=== PATIENT | female | born 1965 | race Caucasian/White ===

== ENCOUNTER 2019-07-24 18:38 | Inpatient (IN) | payer MEDICARE ==
[~2019-07-24] VITALS: Ht 177.8 cm; Wt 93.1 kg
[~2019-07-24 18:38] MED LIST: ETAN50IN5 SC; METH2.5T3 PO; PERCOT PO; SERT100T PO
[2019-07-24] MEDS ORDERED: methylPREDNISolone SOD SUCC 125 MG/2 ML VL IV ONE (19:00)
[2019-07-24] MEDS ORDERED: diphenhdrAMINE HCL 50 MG/1 ML VL IV ONE (19:00)
[2019-07-24 19:30] LABS: Basophils # (auto) 0 uL; Eosinophils # (auto) 0.6 uL; Eosinophils % (auto) 13.3 % (0.0-7.0); Hemoglobin 9.5 g/dL (12.2-16.2); Monocytes # (auto) 0.1 uL; Neutrophils # (auto) 3.1 uL; White Blood Cell 4.8 10^3/uL (4.4-10.8)
[2019-07-24 19:32] LABS: Basophils % (auto) 0.3 % (0.0-2.0); Hematocrit 29.3 % (36.0-46.0); Lymphocytes % (auto) 20.4 % (10.0-50.0); Mean Corpuscular Hemoglobin 26.9 pg (28.0-32.0); Mean Corpuscular Hgb Conc. 32.4 g/dL (32.0-36.0); Mean Corpuscular Volume 83.1 fL (80.0-100.0); Monocytes % (auto) 1.1 % (0.0-12.0); Neutrophils % (auto) 64.9 % (37.0-80.0); Nucleated Red Blood Cells % 0.1 %; Platelet Count (auto) 150 10^3/uL (140-450); Red Blood Cells 3.52 10^6/uL (4.0-5.20)
[2019-07-24 19:38] LABS: Red Cell Distribution Width 21.6 % (11.8-14.3)
[2019-07-24 19:45] LABS: Albumin 2.9 g/dL (3.4-5.0); Anion Gap 6 (5-15); Blood Urea Nitrogen 28 mg/dL (7-18); Calcium 8.8 mg/dL (8.5-10.1); Carbon Dioxide 21 mmol/L (21-32); Chloride 110 mmol/L (98-107); Glucose 97 mg/dL (74-106); Sodium 137 mmol/L (136-145)
[2019-07-24 19:51] LABS: Alanine Aminotransferase 13 U/L (13-56); Alkaline Phosphatase 79 U/L (45-117); Aspartate Aminotransferase 20 U/L (15-37); BUN/Creatinine Ratio 20.6; Bilirubin, Total 0.7 mg/dL (0.2-1.0); GFR African American 52 mL/min; GFR Non-African American 43 mL/min; Total Protein 8.2 g/dL (6.4-8.2)
[2019-07-24 22:16] LABS: Urine Bacteria FEW /hpf (None Seen); Urine Blood 2+ /uL (Negative); Urine Mucus FEW (None Seen); Urine Specific Gravity 1.018 (1.001-1.035); Urine WBC 295 /hpf (0 - 5)
[2019-07-24] MEDS ORDERED: ACETAMINOPHEN 650 mg PER 20 mL UD PO PRN (22:30)
[2019-07-24] MEDS ORDERED: MORPHINE SULFATE 4 MG/ML SYR/VIAL IV ONE (22:30)
[2019-07-24] MEDS ORDERED: ONDANSETRON HCL 4 MG/2 ML VIAL IV PRN (22:30)
[2019-07-24 23:00] VITALS: BP 99/53
[2019-07-24] MEDS ORDERED: cefTRIAXone 1GM/50ML D5W 50 ML IV ONE (23:00)
[2019-07-24] MEDS: SODIUM CHLORIDE 0.9% 1,000 ML IV SCH (23:00)
[2019-07-24] MEDS: diphenhdrAMINE HCL 50 MG/1 ML VL IV PRN (23:37)
[2019-07-25] VITALS (10 sets, daily range): BP systolic 92–138; BP diastolic 53–77
[2019-07-25] MEDS ORDERED: [UNRECOGNIZED DRUG - CODE] PO (00:21)
[2019-07-25] MEDS ORDERED: TEMA30CA5 PO (00:21)
[2019-07-25] MEDS ORDERED: TRAZ100T2 PO (00:21)
[2019-07-25] MEDS ORDERED: PERCOT PO (00:21)
[2019-07-25] MEDS ORDERED: GABA300C10 PO (00:21)
[2019-07-25] MEDS: MORPHINE SULF INJ 2 MG/ML SYRINGE 1ML IV PRN ×4 (04:06→18:33)
[2019-07-25 06:29] LABS: BUN/Creatinine Ratio 20.3; Calcium 8.6 mg/dL (8.5-10.1); Potassium 4.3 mmol/L (3.5-5.1)
[2019-07-25] MEDS: NYSTATIN (MOUTH-THROAT) 500,000 UNITS/5 ML SUSP MT SCH ×4 (06:30→22:11)
[2019-07-25] MEDS: methylPREDNISolone SOD SUCC 40 MG/ML VL IV SCH ×3 (06:30→22:11)
[2019-07-25 07:12] LABS: Hematocrit 24.4 % (36.0-46.0); Hemoglobin 8.2 g/dL (12.2-16.2); Mean Corpuscular Hemoglobin 27.6 pg (28.0-32.0); Mean Corpuscular Hgb Conc. 33.5 g/dL (32.0-36.0); Mean Corpuscular Volume 82.6 fL (80.0-100.0); Platelet Count (auto) 109 10^3/uL (140-450); Red Blood Cells 2.95 10^6/uL (4.0-5.20); White Blood Cell 3.6 10^3/uL (4.4-10.8)
[2019-07-25 07:14] LABS: Red Cell Distribution Width 21.5 % (11.8-14.3)
[2019-07-25 07:15] LABS: Band Neutrophils % (manual) 0; Basophils % (manual) 0 (0.0-2.0); Blast Cells 0; Metamyelocytes % 0; Monocytes % (manual) 0 (0-12); Myelocytes % 0; Promyelocytes % 0; Reactive Lymphocytes 0
--- NOTE | 2019-07-25 07:30 | NUR ---
Opening Shift Note Assumed care of patient, awake and alert. No S/S of distress/SOB or pain. Bed is in lowest position with 2x side rails up for safety. Instructed on POC and to call for assist PRN, will continue to monitor for changes Q1hr and PRN.
[2019-07-25 07:38] LABS: Eosinophils % (manual) 15 (0-7); Lymphocytes % (manual) 30 (10.0-50.0)
[2019-07-25] MEDS ORDERED: PNEUMOCOCCAL VACC POLYS 25 MCG/0.5 ML VIAL IM ONE (09:00)
[2019-07-25] MEDS ORDERED: INFLUENZA QUAD 2019-2020 0.5ml SYRG IM SCH (09:00)
--- NOTE | 2019-07-25 09:17 | NUR ---
MOUTH SORES Unable to take photos of sores in patients mouth due to patient not being able to open mouth wide enough. Patient stated it is too painful.
[2019-07-25 09:59] LABS: Alcohol, Urine < 3.0 mg/dL (0-5); Amphetamine Screen, Urine NEGATIVE (NEGATIVE); Barbiturate Scree,Urine NEGATIVE (NEGATIVE); Benzodiazephine Screen, Urine POSITIVE (NEGATIVE); Cannabinoid Screen, Urine NEGATIVE (NEGATIVE); Cocaine Screen, Urine NEGATIVE (NEGATIVE); Opiate Scree,Urine POSITIVE (NEGATIVE); Phencyclidine Screen, Urine NEGATIVE (NEGATIVE)
--- NOTE | 2019-07-25 10:00 | NUR ---
WOUND Wound found to sacrum, patient reports that it was due to a fall at home previous to admission. Wound care photos taken and wound consult order placed. Optifoam placed to sacral area. Patient tolerated well.
[2019-07-25] MEDS: LIDOCAINE VISCOUS 2% 15ML UD MT PRN ×2 (11:43→20:23)
[2019-07-25 13:40] LABS: INR 1.01 (0.9-1.15)
[2019-07-25 13:41] LABS: % Iron Saturation 24.9 % (15-50)
--- NOTE | 2019-07-25 14:30 | NUR ---
IV removal IV DC'd from Left fore arm with sterile technique, 20g catheter fully intact. Pressure dressing applied to site. Patient tolerated well.
--- NOTE | 2019-07-25 14:40 | NUR ---
IV insertion IV access obtained, via clean sterile technique by inserting a 22 gauge catheter at the right hand after 1 attempt(s). IV secured properly. No trauma to site. Patient tolerated well.
[2019-07-25] MEDS: SODIUM CHLORIDE 0.9% 1,000 ML IV SCH (15:28)
--- NOTE | 2019-07-25 19:00 | NUR ---
CLOSING NOTE Patient is awake and alert. No S/S of distress/SOB or pain. Bed locked in the lowest position. Bed rails up x2. Call light in reach. Care endorsed to night nurse.
[2019-07-25] MEDS: LORazepam 2MG/ML-1ML VIAL IV PRN (20:23)
[2019-07-25] MEDS ORDERED: cefTRIAXone 1GM/50ML D5W 50 ML IV SCH (21:00)
[2019-07-26 02:00] VITALS: BP 104/61
[2019-07-26] MEDS: MORPHINE SULF INJ 2 MG/ML SYRINGE 1ML IV PRN ×4 (02:02→18:31)
[2019-07-26 05:33] VITALS: BP 102/67
[2019-07-26] MEDS: methylPREDNISolone SOD SUCC 40 MG/ML VL IV SCH ×3 (06:25→22:24)
[2019-07-26] MEDS: NYSTATIN (MOUTH-THROAT) 500,000 UNITS/5 ML SUSP MT SCH ×4 (06:25→22:24)
--- NOTE | 2019-07-26 07:30 | NUR ---
Opening Shift Note Assumed care of patient, awake and alert. No S/S of distress/SOB. PT rated pain at a 5/10. The pt aware that she is not due for pain medications at this time. Bed in lowest and locked position with side rails up x2 and call light with in reach. Instructed on POC and to call for assist PRN, will continue to monitor for changes Q1hr and PRN.
[2019-07-26] MEDS: LORazepam 2MG/ML-1ML VIAL IV PRN ×2 (08:06→20:40)
[2019-07-26 09:00] VITALS: BP 122/73
[2019-07-26 09:15] LABS: Basophils # (auto) 0 uL; Eosinophils # (auto) 0 uL; Hematocrit 27.2 % (36.0-46.0); Lymphocytes # (auto) 0.3 uL; Lymphocytes % (auto) 9.1 % (10.0-50.0); Mean Corpuscular Hemoglobin 27.1 pg (28.0-32.0); Monocytes # (auto) 0 uL; Monocytes % (auto) 0.2 % (0.0-12.0); Neutrophils # (auto) 2.7 uL; Neutrophils % (auto) 90.7 % (37.0-80.0); Nucleated Red Blood Cells % 0.1 %; Platelet Count (auto) 114 10^3/uL (140-450); Red Blood Cells 3.32 10^6/uL (4.0-5.20); Red Cell Distribution Width 20.8 % (11.8-14.3)
[2019-07-26 09:33] LABS: Albumin 2.5 g/dL (3.4-5.0); Calcium 8.6 mg/dL (8.5-10.1); Potassium 4.1 mmol/L (3.5-5.1)
[2019-07-26 09:36] LABS: BUN/Creatinine Ratio 23.8; Bilirubin, Total 0.3 mg/dL (0.2-1.0); Total Protein 7.3 g/dL (6.4-8.2)
--- NOTE | 2019-07-26 11:45 | NUR ---
URINE SENT TO LAB.
[2019-07-26] MEDS: SODIUM CHLORIDE 0.9% 1,000 ML IV SCH (11:47)
--- NOTE | 2019-07-26 11:59 | NUR ---
Nutrition Assessment Notes please see attached link for complete assessment Est. Needs ABW [id number] kcal (25-30 kcal/kgBW), 61-73 gms pro (1.0-1.2 gms/kgBW). Will continue to monitor pertinent labs and reassess nutrient need prn Addendum: 07/26/19 at [address] Amended: Links added.
--- NOTE | 2019-07-26 12:00 | NUR ---
WOUND CARE NOTE: IN TO SEE PATIENT AT THIS TIME PER WOUND CARE CONSULT REQUEST. PATIENT NOTED UPON ADMIT TO HAVE WOUNDS TO SACRUM. WOUND PHOTOS TAKEN AT THAT TIME BY BEDSIDE NURSE FOR REFERENCE. PATIENT ADMITTED TO [facility] WITH DIAGNOSIS OF ALLERGIC REACTION. CURRENT CATARINO SCORE IS 17. PATIENT CAN SELF TURN/REPOSITION SELF. PATIENT ADMITS TO WEARING DIAPERS AT HOME. SHE IS NOTED TO HAVE MASD WITH MACERATED SKIN/SKIN EROSION. THERE ARE THREE OPEN ULCERS NOTED. WOUND AT UPPER MEDIAL SACRUM IS FULL THICKNESS, WOUNDS TO RIGHT AND LEFT LOWER SACRUM ARE PARTIAL THICKNESS. APPLIED THERAHONEY, OPTIFOAM GENTLE SACRAL DRESSING. PATIENT EDUCATED ON INCONTINENCE AND THE USAGE OF DIAPERS. PATIENT VERBALIZED UNDERSTANDING. PATIENT ALSO HAS MULTIPLE MUCOSAL ULCERATIONS WITHIN MOUTH. NO OTHER WOUNDS NOTED AT THIS TIME. SKIN/WOUND CARE PLAN IMPLEMENTED. PATIENT WOULD BENEFIT FROM: DAILY/PRN DRESSING CHANGES TO SACRAL WOUNDS WITH THERAHONEY, OPTIFOAM GENTLE DRESSING, BID/PRN APPLICATION WITH MOISTURE BARRIER CREAM TO LOWER BUTTOCKS/PERINEUM, FREQUENT PERICARE GIVEN NEEDED, DIETARY CONSULT, CONTINUED MONITORING BY WOUND CARE TEAM. Addendum: 07/26/19 at 1607 by Nereyda Le RN Amended: Links added.
[2019-07-26 12:31] LABS: Urine Bacteria NONE SEEN /hpf (None Seen); Urine Blood 3+ /uL (Negative); Urine Specific Gravity 1.017 (1.001-1.035); Urine WBC 40 /hpf (0 - 5)
[2019-07-26 13:00] VITALS: BP 97/59
[2019-07-26 16:51] VITALS: BP 101/70
--- NOTE | 2019-07-26 19:30 | NUR ---
ENDORSED CARE TO DIRECTOR DIGITAL STRATEGY RNEMMA.
[2019-07-26] MEDS: LIDOCAINE VISCOUS 2% 15ML UD MT PRN (20:40)
[2019-07-26 22:00] VITALS: BP 103/70
[2019-07-27] MEDS: MORPHINE SULF INJ 2 MG/ML SYRINGE 1ML IV PRN ×4 (02:53→16:29)
[2019-07-27 05:00] VITALS: BP 109/70
[2019-07-27] MEDS: LORazepam 2MG/ML-1ML VIAL IV PRN ×2 (05:54→20:22)
[2019-07-27] MEDS: NYSTATIN (MOUTH-THROAT) 500,000 UNITS/5 ML SUSP MT SCH ×4 (05:54→21:42)
[2019-07-27] MEDS: methylPREDNISolone SOD SUCC 40 MG/ML VL IV SCH (05:56)
[2019-07-27 07:07] LABS: Hemoglobin 7.9 g/dL (12.2-16.2)
[2019-07-27 07:10] LABS: Hematocrit 24.2 % (36.0-46.0); Mean Corpuscular Hgb Conc. 32.9 g/dL (32.0-36.0); Mean Corpuscular Volume 82.2 fL (80.0-100.0); Platelet Count (auto) 85 10^3/uL (140-450); Red Blood Cells 2.94 10^6/uL (4.0-5.20); Red Cell Distribution Width 21.3 % (11.8-14.3)
[2019-07-27 07:12] LABS: White Blood Cell 1.8 10^3/uL (4.4-10.8)
[2019-07-27 07:13] LABS: Basophils % (manual) 0 (0.0-2.0); Blast Cells 0; Eosinophils % (manual) 0 (0-7); Metamyelocytes % 0; Monocytes % (manual) 0 (0-12); Myelocytes % 0; Promyelocytes % 0; Reactive Lymphocytes 0
[2019-07-27 07:20] LABS: Potassium 4.3 mmol/L (3.5-5.1)
[2019-07-27 07:31] LABS: BUN/Creatinine Ratio 32.4; Calcium 8.6 mg/dL (8.5-10.1)
--- NOTE | 2019-07-27 08:00 | NUR ---
Opening Shift Note Assumed care of patient, awake and alert, oriented x 4 and verbally responsive. Respiratory even and unlabored. No S/S of distress/SOB or pain. Skin is warm and dry to touch. Instructed on POC and to call for assist PRN, will continue to monitor for changes Q1hr and PRN.
[2019-07-27 08:22] LABS: Band Neutrophils % (manual) 1; Lymphocytes % (manual) 24 (10.0-50.0)
[2019-07-27 09:00] VITALS: BP 105/54
[2019-07-27 13:00] VITALS: BP 103/70
[2019-07-27] MEDS: FILGRASTIM (TBO) 300 MCG/0.5 ML SYRG SC SCH (15:46)
[2019-07-27 17:00] VITALS: BP 122/74
--- NOTE | 2019-07-27 19:40 | NUR ---
Opening Shift Note Assumed care of patient, awake and alert. No S/S of distress/SOB or pain. Instructed on POC and to call for assist PRN. Bed in lowest locked position, call light within reach, side rails up x2, fall precautions in place. Will continue to monitor for changes Q1hr and PRN.
[2019-07-27] MEDS: DexAMETHasone 0.5MG/5ML ORAL ELIX PO SCH (21:42)
[2019-07-27 22:00] VITALS: BP 135/76
[2019-07-28] MEDS: MORPHINE SULF INJ 2 MG/ML SYRINGE 1ML IV PRN ×4 (04:54→20:32)
[2019-07-28 05:00] VITALS: BP 110/60
[2019-07-28 06:41] LABS: Hemoglobin 8.1 g/dL (12.2-16.2); Platelet Count (auto) 57 10^3/uL (140-450); Red Blood Cells 2.95 10^6/uL (4.0-5.20); White Blood Cell 5.4 10^3/uL (4.4-10.8)
[2019-07-28 06:44] LABS: Hematocrit 24.1 % (36.0-46.0); Mean Corpuscular Hemoglobin 27.4 pg (28.0-32.0); Mean Corpuscular Hgb Conc. 33.6 g/dL (32.0-36.0); Mean Corpuscular Volume 81.6 fL (80.0-100.0)
[2019-07-28] MEDS: NYSTATIN (MOUTH-THROAT) 500,000 UNITS/5 ML SUSP MT SCH ×4 (06:45→21:41)
[2019-07-28 06:46] LABS: Red Cell Distribution Width 21.6 % (11.8-14.3)
[2019-07-28] MEDS: DexAMETHasone 0.5MG/5ML ORAL ELIX PO SCH ×3 (06:46→21:41)
[2019-07-28 06:47] LABS: Basophils % (manual) 0 (0.0-2.0); Blast Cells 0; Eosinophils % (manual) 0 (0-7); Metamyelocytes % 0; Myelocytes % 0; Promyelocytes % 0; Reactive Lymphocytes 0
[2019-07-28 07:01] LABS: BUN/Creatinine Ratio 28.7; Calcium 8.5 mg/dL (8.5-10.1); Potassium 3.8 mmol/L (3.5-5.1)
--- NOTE | 2019-07-28 07:45 | NUR ---
Opening Shift Note Assumed care of patient, awake, alert and oriented. No S/S of distress/SOB or pain. Instructed on POC and to call for assist PRN. Bed in lowest locked position, call light within reach, side rails up x2. Will continue to monitor for changes Q1hr and PRN.
[2019-07-28 08:50] LABS: Band Neutrophils % (manual) 4; Lymphocytes % (manual) 28 (10.0-50.0); Monocytes % (manual) 2 (0-12)
[2019-07-28 09:00] VITALS: BP 103/59
[2019-07-28] MEDS: FILGRASTIM (TBO) 300 MCG/0.5 ML SYRG SC SCH (09:46)
[2019-07-28] MEDS: LORazepam 2MG/ML-1ML VIAL IV PRN ×2 (12:57→18:48)
[2019-07-28 13:00] VITALS: BP 94/63
[2019-07-28] MEDS ORDERED: Ensure Enlive Strawberry 8oz Bottle PO ONE (13:00)
[2019-07-28 16:49] VITALS: BP 94/62
[2019-07-28] MEDS: Ensure Enlive Strawberry 8oz Bottle PO SCH (18:23)
[2019-07-28 21:41] VITALS: BP 93/67
[2019-07-29] MEDS: MORPHINE SULF INJ 2 MG/ML SYRINGE 1ML IV PRN ×5 (02:12→22:07)
[2019-07-29 04:59] VITALS: BP 108/62
[2019-07-29 05:12] LABS: Basophils # (auto) 0 uL; Eosinophils # (auto) 0 uL; Eosinophils % (auto) 0.4 % (0.0-7.0); Hemoglobin 8.7 g/dL (12.2-16.2); Monocytes # (auto) 0.3 uL
[2019-07-29 05:15] LABS: Basophils % (auto) 0.1 % (0.0-2.0); Hematocrit 25.7 % (36.0-46.0); Lymphocytes # (auto) 1.9 uL; Mean Corpuscular Volume 82.5 fL (80.0-100.0); Monocytes % (auto) 2.6 % (0.0-12.0); Neutrophils # (auto) 8.6 uL; Neutrophils % (auto) 78.9 % (37.0-80.0); Platelet Count (auto) 52 10^3/uL (140-450); Red Blood Cells 3.11 10^6/uL (4.0-5.20); Red Cell Distribution Width 21.8 % (11.8-14.3); White Blood Cell 10.8 10^3/uL (4.4-10.8)
[2019-07-29 05:49] LABS: BUN/Creatinine Ratio 24.5; Calcium 8.1 mg/dL (8.5-10.1); Potassium 3.7 mmol/L (3.5-5.1)
[2019-07-29] MEDS: DexAMETHasone 0.5MG/5ML ORAL ELIX PO SCH ×3 (06:19→22:06)
[2019-07-29] MEDS: NYSTATIN (MOUTH-THROAT) 500,000 UNITS/5 ML SUSP MT SCH ×4 (06:19→22:06)
[2019-07-29 09:00] VITALS: BP 101/64
[2019-07-29] MEDS: Ensure Enlive Strawberry 8oz Bottle PO SCH ×2 (09:57→17:48)
[2019-07-29] MEDS: LORazepam 2MG/ML-1ML VIAL IV PRN ×2 (10:45→16:43)
--- NOTE | 2019-07-29 10:53 | NUR ---
WOUND CARE DRESSING CHANGED per wound care nurse recommendations
--- NOTE | 2019-07-29 11:33 | NUR ---
Nutrition Follow-up Notes Wt.: 62.0 kg Pt was with WC RN by bedside when rounded this am. per records pt with improving mucositis pt is currently on full liq diet with ensure Enlive TID with inadequate PO of < 50% x 6 per RN doc Est. Needs ABW [id number] kcal (25-30 kcal/kgBW), 61-73 gms pro (1.0-1.2 gms/kgBW). Will continue to monitor pertinent labs and reassess nutrient need prn Labs: BUN 26 H, CREAT 1.06 H, ALB 2.5 L, CA 8.1 L. Skin: Lance scale 19, low risk skin intact per demonstrator knitting. GI: Pt has no BM reported per demonstrator knitting. PES: Altered nutrition related lab values r/t current/chronic medical condition aeb elev RFT mod hypoalb Will continue to monitor PO intake, skin status, pertinent labs and weight trend. F/u in 3-5 days. Rec.: 1.) advance diet as medically feasible. 2) continue current plan of care
[2019-07-29 13:00] VITALS: BP 97/50
--- NOTE | 2019-07-29 15:05 | NUR ---
MD CALL DR Keya KELLOGG CALLED RE: RHEUMATOLOGY CONSULTS FOR Beatriz KELLOGG. Wandy KELLOGG INFORMED PRIMARY RN THAT Eli KELLOGG IS OUT OF OFFICE UNTIL WEDNESDAY
[2019-07-29 17:00] VITALS: BP 92/61
--- NOTE | 2019-07-29 19:55 | NUR ---
open note assumed care of pt. upon entering room pt awake, alert and oriented x4. pt on room air no distress noted or expressed. pt updated on plan of care, no questions at this time. pt bed locked, low and 2x rails up. pt encouraged to call as needed. call light in reach. this nurse encouraged pt to call for assistance to bedside commode, to which pt agreed. call light in reach, will round q1hr and prn.
[2019-07-29] MEDS: diphenhdrAMINE HCL 50 MG/1 ML VL IV PRN (20:46)
[2019-07-29 21:57] VITALS: BP 113/64
[2019-07-30 05:00] VITALS: BP 95/56
[2019-07-30] MEDS: DexAMETHasone 0.5MG/5ML ORAL ELIX PO SCH ×3 (05:42→21:57)
[2019-07-30] MEDS: NYSTATIN (MOUTH-THROAT) 500,000 UNITS/5 ML SUSP MT SCH ×4 (05:42→21:57)
[2019-07-30] MEDS: MORPHINE SULF INJ 2 MG/ML SYRINGE 1ML IV PRN ×4 (05:43→22:24)
[2019-07-30 06:31] LABS: Basophils # (auto) 0 uL; Basophils % (auto) 0.1 % (0.0-2.0); Eosinophils # (auto) 0.2 uL; Monocytes # (auto) 0.5 uL; Platelet Count (auto) 48 10^3/uL (140-450); Red Blood Cells 3.22 10^6/uL (4.0-5.20)
[2019-07-30 06:34] LABS: Eosinophils % (auto) 2.4 % (0.0-7.0); Hematocrit 26.7 % (36.0-46.0); Lymphocytes # (auto) 2.4 uL; Mean Corpuscular Hemoglobin 27.8 pg (28.0-32.0); Mean Corpuscular Hgb Conc. 33.5 g/dL (32.0-36.0); Monocytes % (auto) 5.3 % (0.0-12.0); Neutrophils # (auto) 6.9 uL; Neutrophils % (auto) 68.2 % (37.0-80.0); White Blood Cell 10.1 10^3/uL (4.4-10.8)
[2019-07-30 06:35] LABS: Red Cell Distribution Width 21.9 % (11.8-14.3)
[2019-07-30 06:53] LABS: BUN/Creatinine Ratio 19.6; Calcium 8.1 mg/dL (8.5-10.1); Potassium 3.6 mmol/L (3.5-5.1)
[2019-07-30 09:00] VITALS: BP 93/58
[2019-07-30] MEDS: Ensure Enlive Strawberry 8oz Bottle PO SCH ×2 (09:15→17:46)
[2019-07-30] MEDS: LORazepam 2MG/ML-1ML VIAL IV PRN (09:45)
--- NOTE | 2019-07-30 12:05 | NUR ---
MD ROUNDS DR DENT AT BEDSIDE DISCUSSING POC WITH PATIENT. ALL QUESTIONS/CONCERNS ANSWERED. WILL CONTINUE TO MONITOR
[2019-07-30 13:00] VITALS: BP 88/49
--- NOTE | 2019-07-30 13:58 | NUR ---
WOUND CARE DRESSING CHANGED per wound care nurse recommendations
[2019-07-30] MEDS: diphenhdrAMINE HCL 50 MG/1 ML VL IV PRN (16:23)
[2019-07-30 16:59] VITALS: BP 101/68
--- NOTE | 2019-07-30 19:30 | NUR ---
Opening Shift Assumed care of patient, awake and alert. No S/S of distress/SOB or pain. Insructed on POC and to callfor assist PRN, will continue to monitor for changes Q1hr and PRN. Fall and safety precautions in place. Call light within reach.
[2019-07-30 22:00] VITALS: BP 100/63
[2019-07-31] MEDS: MORPHINE SULF INJ 2 MG/ML SYRINGE 1ML IV PRN ×3 (02:37→13:23)
[2019-07-31 05:00] VITALS: BP 112/66
[2019-07-31] MEDS: NYSTATIN (MOUTH-THROAT) 500,000 UNITS/5 ML SUSP MT SCH ×2 (05:36→12:00)
[2019-07-31] MEDS: DexAMETHasone 0.5MG/5ML ORAL ELIX PO SCH ×2 (05:36→13:53)
[2019-07-31 06:35] LABS: Hematocrit 27.6 % (36.0-46.0); Hemoglobin 9.3 g/dL (12.2-16.2); Mean Corpuscular Hemoglobin 28.1 pg (28.0-32.0); White Blood Cell 6.4 10^3/uL (4.4-10.8)
[2019-07-31 06:38] LABS: Mean Corpuscular Hgb Conc. 33.7 g/dL (32.0-36.0); Mean Corpuscular Volume 83.4 fL (80.0-100.0); Platelet Count (auto) 57 10^3/uL (140-450); Red Blood Cells 3.31 10^6/uL (4.0-5.20)
[2019-07-31 06:49] LABS: Red Cell Distribution Width 22.7 % (11.8-14.3)
[2019-07-31 06:51] LABS: Band Neutrophils % (manual) 0; Basophils % (manual) 0 (0.0-2.0); Blast Cells 0; Metamyelocytes % 0; Myelocytes % 0; Promyelocytes % 0; Reactive Lymphocytes 0
[2019-07-31 07:01] LABS: Calcium 8.7 mg/dL (8.5-10.1); Potassium 4.2 mmol/L (3.5-5.1)
[2019-07-31 07:04] LABS: BUN/Creatinine Ratio 23.2
[2019-07-31 07:12] LABS: % Iron Saturation 26.9 % (15-50)
[2019-07-31 08:28] LABS: Eosinophils % (manual) 3 (0-7); Lymphocytes % (manual) 42 (10.0-50.0); Monocytes % (manual) 7 (0-12)
[2019-07-31 09:00] VITALS: BP 107/67
[2019-07-31 09:30] LABS: Folate (Folic Acid) 1.72 ng/mL (5.38-24)
[2019-07-31] MEDS ORDERED: LIDV15LQ MT (11:00)
[2019-07-31 13:00] VITALS: BP 122/65
--- NOTE | 2019-07-31 15:39 | NUR ---
DISCHARGE NOTE Discharge instructions given as ordered. Encourage to follow up with PMD as instructed. All questions and concerns addressed. Patient verbalized understanding. Medication reconciliation form completed and copy given to patient. IV removed with catheter intact, pressure dressing applied. Patient taken to vehicle via wheelchair with all personal belongings, accompanied by staff and family member. No distress noted at time of departure.
== END 2019-07-31 15:20 | disposition home or self-care (01) | DRG 157 ==
LOC: ER 18:40 → OVERFLOW 18:41 → WEST WING 23:00
PROVIDERS: ADMIT Nurse Practitioner Family; ATTEND Internal Medicine Nephrology
DX: K12.32 Oral mucositis (ulcerative) due to other drugs (principal); N17.0 Acute kidney failure with tubular necrosis; E43 Unspecified severe protein-calorie malnutrition; B37.0 Candidal stomatitis; N39.0 Urinary tract infection, site not specified; D61.818 Other pancytopenia; M06.9 Rheumatoid arthritis, unspecified; R31.9 Hematuria, unspecified; F44.9 Dissociative and conversion disorder, unspecified; T50.995A Adverse effect of other drugs, medicaments and biological substances, initial encounter; E11.22 Type 2 diabetes mellitus with diabetic chronic kidney disease; F17.210 Nicotine dependence, cigarettes, uncomplicated; E11.40 Type 2 diabetes mellitus with diabetic neuropathy, unspecified; E11.42 Type 2 diabetes mellitus with diabetic polyneuropathy; E07.9 Disorder of thyroid, unspecified; F32.9 Major depressive disorder, single episode, unspecified; Z80.49 Family history of malignant neoplasm of other genital organs; Z83.3 Family history of diabetes mellitus; Z79.899 Other long term (current) drug therapy; Z88.0 Allergy status to penicillin; Z68.29 Body mass index [BMI] 29.0-29.9, adult
CPT/HCPCS: 36415; 71045; 80048; 80053; 80307; 81001; 82570; 82607; 82728; 82746; 83516; 83540; 83550; 83735; 84156; 84484; 85007; 85025; 85027; 85610; 85652; 86160; 86225; 86235; 86703; 87086; 93005; 94761; 96374; 96375; G0378; J0696; J1447; J2405

== ENCOUNTER 2020-03-07 10:19 | Inpatient (IN) | payer MEDICARE ==
[~2020-03-07] VITALS: Ht 177.8 cm; Wt 63.3 kg
[~2020-03-07 10:19] MED LIST changes: -ETAN50IN5 SC; +GABA300C10 PO; +LIDV15LQ MT; -METH2.5T3 PO; -PERCOT PO; +TRAZ100T3 PO
[2020-03-07] MEDS ORDERED: DOPamine 1600MCG/ML D5W 250 ML IV ONE ×2 (13:00→13:45)
[2020-03-07] MEDS ORDERED: SODIUM CHLORIDE 0.9% 1,000 ML IV ONE (13:20)
[2020-03-07 13:43] LABS: Basophils # (auto) 0 10 ^3/uL (0-0.2); Basophils % (auto) 0.7 % (0.0-2.0); Eosinophils # (auto) 0.1 10 ^3/uL (0-0.8); Eosinophils % (auto) 1.2 % (0.0-7.0); Hematocrit 32.3 % (36.0-46.0); Hemoglobin 10.2 g/dL (12.2-16.2); Lymphocytes # (auto) 1.3 10 ^3/uL (0.4-5.4); Lymphocytes % (auto) 21.7 % (10.0-50.0); Mean Corpuscular Hemoglobin 27.2 pg (28.0-32.0); Mean Corpuscular Hgb Conc. 31.5 g/dL (32.0-36.0); Mean Corpuscular Volume 86.4 fL (80.0-100.0); Monocytes # (auto) 0.9 10 ^3/uL (0-1.3); Monocytes % (auto) 15.3 % (0.0-12.0); Neutrophils # (auto) 3.7 10 ^3/uL (1.6-8.6); Neutrophils % (auto) 61.1 % (37.0-80.0); Nucleated Red Blood Cells % 0.1 %; Platelet Count (auto) 378 10^3/uL (140-450); Red Blood Cells 3.74 10^6/uL (4.0-5.20); Red Cell Distribution Width 17.4 % (11.8-14.3); White Blood Cell 6.1 10^3/uL (4.4-10.8)
[2020-03-07 13:53] LABS: Urine Bacteria MANY /hpf (None Seen); Urine Blood TRACE /uL (Negative); Urine Mucus FEW (None Seen); Urine Specific Gravity 1.015 (1.001-1.035); Urine WBC 160 /hpf (0 - 5); Urine WBC Clumps PRESENT /hpf (None Seen)
[2020-03-07 14:00] LABS: INR 1.13 (0.9-1.15); Partial Thromboplastin Time 32.5 sec (23.64-32.05)
[2020-03-07 14:03] LABS: Albumin 2.3 g/dL (3.4-5.0); Anion Gap 4 (5-15); Blood Urea Nitrogen 19 mg/dL (7-18); Calcium 7.8 mg/dL (8.5-10.1); Carbon Dioxide 25 mmol/L (21-32); Chloride 112 mmol/L (98-107); Glucose 89 mg/dL (74-106); Potassium 3.9 mmol/L (3.5-5.1); Sodium 141 mmol/L (136-145)
[2020-03-07 14:09] LABS: Alanine Aminotransferase 11 U/L (13-56); Alkaline Phosphatase 71 U/L (45-117); Aspartate Aminotransferase 10 U/L (15-37); BUN/Creatinine Ratio 17.4; Bilirubin, Total 0.3 mg/dL (0.2-1.0); GFR African American 67 mL/min; GFR Non-African American 56 mL/min; Total Protein 6.4 g/dL (6.4-8.2)
[2020-03-07] MEDS ORDERED: MORPHINE SULF INJ 2 MG/ML SYRINGE 1ML IV PRN (14:15)
[2020-03-07] MEDS ORDERED: NITROGLYCERIN 0.4 MG SL TAB SL PRN (14:15)
[2020-03-07 16:05] VITALS: BP 119/78
[2020-03-07 16:10] VITALS: BP 119/78
[2020-03-07] MEDS ORDERED: cefTRIAXone 1GM/50ML D5W 50 ML IV ONE (16:45)
[2020-03-07] MEDS ORDERED: LACTULOSE 20Gm/30ML SOLN PO PRN (16:45)
[2020-03-07] MEDS ORDERED: PROMETHAZINE HCL 25 MG/ML 1ML IV PRN (16:45)
[2020-03-07] MEDS ORDERED: THIAMINE 100mg/ml INJ (200mg/2ml VIAL) IV ONE (16:45)
[2020-03-07] MEDS ORDERED: ACETAMINOPHEN 500 MG TAB PO PRN (16:45)
[2020-03-07] MEDS ORDERED: chlordiazePOXIDE HCL 25 MG CAP PO PRN (16:45)
[2020-03-07] MEDS: SODIUM CHLORIDE 0.9% 1,000 ML IV SCH (18:05)
[2020-03-07] MEDS: FAMOTIDINE (10MG/ML) 2ML VL IV SCH (18:06)
[2020-03-07] MEDS ORDERED: TEMA30CA PO (18:37)
[2020-03-07] MEDS ORDERED: MORP10CA10 OR (18:37)
[2020-03-07] MEDS ORDERED: PERCOT PO (18:37)
[2020-03-07 19:49] VITALS: BP 109/67
[2020-03-07] MEDS: TEMAZEPAM 15 MG CAP PO PRN ×2 (20:47→22:58)
[2020-03-07] MEDS: MORPHINE SULFATE 4 MG/ML SYR/VIAL IV PRN (20:47)
[2020-03-07] MEDS: HYDROcodone-ACET 5/325MG TAB PO PRN (23:42)
[2020-03-07 23:55] VITALS: BP 92/51
[2020-03-08] MEDS: MORPHINE SULFATE 4 MG/ML SYR/VIAL IV PRN ×4 (03:35→20:09)
[2020-03-08 03:58] LABS: Basophils # (auto) 0.1 10 ^3/uL (0-0.2); Basophils % (auto) 0.9 % (0.0-2.0); Eosinophils # (auto) 0.3 10 ^3/uL (0-0.8); Eosinophils % (auto) 5.6 % (0.0-7.0); Hematocrit 30.9 % (36.0-46.0); Hemoglobin 9.8 g/dL (12.2-16.2); Lymphocytes # (auto) 1.5 10 ^3/uL (0.4-5.4); Lymphocytes % (auto) 25.9 % (10.0-50.0); Mean Corpuscular Hemoglobin 27.7 pg (28.0-32.0); Mean Corpuscular Hgb Conc. 31.7 g/dL (32.0-36.0); Mean Corpuscular Volume 87.3 fL (80.0-100.0); Monocytes # (auto) 0.6 10 ^3/uL (0-1.3); Monocytes % (auto) 9.9 % (0.0-12.0); Neutrophils # (auto) 3.3 10 ^3/uL (1.6-8.6); Neutrophils % (auto) 57.7 % (37.0-80.0); Nucleated Red Blood Cells % 0.1 %; Platelet Count (auto) 337 10^3/uL (140-450); Red Blood Cells 3.53 10^6/uL (4.0-5.20); Red Cell Distribution Width 17.4 % (11.8-14.3); White Blood Cell 5.7 10^3/uL (4.4-10.8)
[2020-03-08 04:17] VITALS: BP 81/51
[2020-03-08 04:17] LABS: Albumin 2.1 g/dL (3.4-5.0); BUN/Creatinine Ratio 13.6; Calcium 7.8 mg/dL (8.5-10.1); Potassium 3.9 mmol/L (3.5-5.1)
[2020-03-08 04:20] LABS: Bilirubin, Total 0.2 mg/dL (0.2-1.0); Total Protein 6.1 g/dL (6.4-8.2)
[2020-03-08] MEDS: FAMOTIDINE (10MG/ML) 2ML VL IV SCH ×2 (04:45→17:01)
[2020-03-08] MEDS: SODIUM CHLORIDE 0.9% 1,000 ML IV SCH ×3 (06:20→22:56)
[2020-03-08] MEDS: HYDROcodone-ACET 5/325MG TAB PO PRN (06:45)
[2020-03-08 08:00] VITALS: BP 102/56
[2020-03-08] MEDS: cefTRIAXone 1GM/50ML D5W 50 ML IV SCH (08:17)
[2020-03-08] MEDS: THIAMINE 100mg/ml INJ (200mg/2ml VIAL) IV SCH (08:17)
[2020-03-08] MEDS ORDERED: CLINDAMYCIN 300MG IV 50 ML IV ONE (09:15)
[2020-03-08 11:54] VITALS: BP 138/76
[2020-03-08] MEDS: traZODone HCL 50 MG TAB PO SCH (12:17)
[2020-03-08] MEDS: Ensure HIGH Protein Chocolate 8oz Bottle PO SCH ×2 (12:19→17:48)
[2020-03-08] MEDS ORDERED: NICOTINE 14 MG/24HR TOPICAL PATCH TD ONE (12:30)
[2020-03-08 15:47] VITALS: BP 130/71
[2020-03-08] MEDS: METHOTREXATE 2.5 MG TAB PO SCH (17:41)
[2020-03-08] MEDS ORDERED: OXYCODONE W/ ACETAMINOPHEN 5/325MG TABLET PO SCH (18:00)
[2020-03-08 19:00] LABS: Urine Bacteria MANY /hpf (None Seen); Urine Blood 2+ /uL (Negative); Urine WBC 2223 /hpf (0 - 5); Urine WBC Clumps PRESENT /hpf (None Seen)
[2020-03-08 22:00] VITALS: BP 123/66
[2020-03-08] MEDS ORDERED: MORPHINE 15 MG PO SCH (22:45)
[2020-03-08] MEDS: GABAPENTIN 300 MG CAP PO SCH (22:51)
[2020-03-08] MEDS: TEMAZEPAM 15 MG CAP PO PRN (22:51)
[2020-03-09] MEDS: MORPHINE SULF INJ 2 MG/ML SYRINGE 1ML IV PRN ×5 (00:08→22:39)
[2020-03-09] MEDS: FAMOTIDINE (10MG/ML) 2ML VL IV SCH ×2 (04:53→16:23)
[2020-03-09 05:30] VITALS: BP 141/82
[2020-03-09 06:35] LABS: Basophils # (auto) 0.1 10 ^3/uL (0-0.2); Basophils % (auto) 1.1 % (0.0-2.0); Eosinophils # (auto) 0.3 10 ^3/uL (0-0.8); Eosinophils % (auto) 4.8 % (0.0-7.0); Hematocrit 31.9 % (36.0-46.0); Hemoglobin 10.4 g/dL (12.2-16.2); Lymphocytes # (auto) 1.2 10 ^3/uL (0.4-5.4); Mean Corpuscular Hgb Conc. 32.6 g/dL (32.0-36.0); Mean Corpuscular Volume 85.8 fL (80.0-100.0); Monocytes # (auto) 0.6 10 ^3/uL (0-1.3); Monocytes % (auto) 10.4 % (0.0-12.0); Neutrophils # (auto) 3.6 10 ^3/uL (1.6-8.6); Neutrophils % (auto) 62.7 % (37.0-80.0); Platelet Count (auto) 343 10^3/uL (140-450); Red Blood Cells 3.72 10^6/uL (4.0-5.20); Red Cell Distribution Width 17.5 % (11.8-14.3); White Blood Cell 5.7 10^3/uL (4.4-10.8)
[2020-03-09 06:46] LABS: Potassium 3.7 mmol/L (3.5-5.1)
[2020-03-09 06:55] LABS: Albumin 2.2 g/dL (3.4-5.0); Bilirubin, Total 0.4 mg/dL (0.2-1.0); Calcium 8.2 mg/dL (8.5-10.1); Total Protein 6.2 g/dL (6.4-8.2)
[2020-03-09] MEDS: Ensure HIGH Protein Chocolate 8oz Bottle PO SCH ×3 (08:00→17:59)
[2020-03-09] MEDS ORDERED: HYDROmorphone HCL 2 MG/ML VL ONE (08:50)
[2020-03-09] MEDS ORDERED: fentaNYL CITRATE 100 MCG/2 ML VL ONE (08:51)
[2020-03-09] MEDS ORDERED: MIDAZOLAM HCL 1MG/1ML-2 ML VIAL ONE (08:51)
[2020-03-09 09:03] VITALS: BP 127/76
[2020-03-09] MEDS ORDERED: DexAMETHasone SOD PHOS 10MG/1ML VIAL INJ ONE (09:36)
[2020-03-09] MEDS ORDERED: PROPOFOL 10 MG/ML 20 ML IV ONE (09:36)
[2020-03-09] MEDS ORDERED: OXYCODONE W/ ACETAMINOPHEN 5/325MG TABLET PO SCH (10:00)
[2020-03-09] MEDS ORDERED: ENOXAPARIN SOD 40 MG/0.4 ML SYRINGE SC ONE (10:00)
[2020-03-09] MEDS: cefTRIAXone 1GM/50ML D5W 50 ML IV SCH (10:25)
[2020-03-09] MEDS ORDERED: CLINDAMYCIN 600MG IV 50 ML IV ONE (10:27)
[2020-03-09] MEDS: THIAMINE 100mg/ml INJ (200mg/2ml VIAL) IV SCH (10:28)
[2020-03-09] MEDS: traZODone HCL 50 MG TAB PO SCH (10:29)
[2020-03-09] MEDS: SERTRALINE HCL 50 MG TAB PO SCH (10:29)
[2020-03-09] MEDS: SODIUM CHLORIDE 0.9% 1,000 ML IV SCH ×2 (10:30→18:25)
[2020-03-09] MEDS: NICOTINE 14 MG/24HR TOPICAL PATCH TD SCH (10:37)
[2020-03-09] MEDS: MORPHINE 15 MG PO SCH ×2 (11:51→21:51)
[2020-03-09 12:45] VITALS: BP 138/87
[2020-03-09] MEDS: OXYCODONE W/ ACETAMINOPHEN 5/325MG TABLET PO PRN (16:23)
[2020-03-09 17:13] VITALS: BP 130/82
[2020-03-09] MEDS: GABAPENTIN 300 MG CAP PO SCH (21:50)
[2020-03-09 22:00] VITALS: BP 114/77
[2020-03-09] MEDS: TEMAZEPAM 15 MG CAP PO PRN (23:06)
[2020-03-10] MEDS: FAMOTIDINE (10MG/ML) 2ML VL IV SCH ×2 (04:32→17:55)
[2020-03-10] MEDS: SODIUM CHLORIDE 0.9% 1,000 ML IV SCH ×2 (04:39→14:34)
[2020-03-10] MEDS: MORPHINE SULF INJ 2 MG/ML SYRINGE 1ML IV PRN ×5 (04:40→22:31)
[2020-03-10 05:00] VITALS: BP 142/85
[2020-03-10 06:33] LABS: Basophils # (auto) 0.1 10 ^3/uL (0-0.2); Eosinophils # (auto) 0.4 10 ^3/uL (0-0.8); Eosinophils % (auto) 6.6 % (0.0-7.0); Hematocrit 30.3 % (36.0-46.0); Hemoglobin 9.9 g/dL (12.2-16.2); Lymphocytes # (auto) 1.1 10 ^3/uL (0.4-5.4); Lymphocytes % (auto) 19.6 % (10.0-50.0); Mean Corpuscular Hemoglobin 27.8 pg (28.0-32.0); Mean Corpuscular Hgb Conc. 32.6 g/dL (32.0-36.0); Mean Corpuscular Volume 85.2 fL (80.0-100.0); Monocytes # (auto) 0.4 10 ^3/uL (0-1.3); Monocytes % (auto) 6.7 % (0.0-12.0); Neutrophils # (auto) 3.6 10 ^3/uL (1.6-8.6); Neutrophils % (auto) 66.1 % (37.0-80.0); Platelet Count (auto) 323 10^3/uL (140-450); Red Blood Cells 3.56 10^6/uL (4.0-5.20); Red Cell Distribution Width 17.4 % (11.8-14.3); White Blood Cell 5.5 10^3/uL (4.4-10.8)
[2020-03-10 06:52] LABS: Calcium 8.2 mg/dL (8.5-10.1); Potassium 3.7 mmol/L (3.5-5.1)
[2020-03-10 06:55] LABS: BUN/Creatinine Ratio 14.1
[2020-03-10] MEDS: Ensure HIGH Protein Chocolate 8oz Bottle PO SCH ×3 (08:00→17:55)
[2020-03-10 09:00] VITALS: BP 135/77
[2020-03-10] MEDS: cefTRIAXone 1GM/50ML D5W 50 ML IV SCH (09:10)
[2020-03-10] MEDS: NICOTINE 14 MG/24HR TOPICAL PATCH TD SCH (10:10)
[2020-03-10] MEDS: THIAMINE 100mg/ml INJ (200mg/2ml VIAL) IV SCH (10:10)
[2020-03-10] MEDS: MORPHINE 15 MG PO SCH ×2 (10:11→21:45)
[2020-03-10] MEDS: traZODone HCL 50 MG TAB PO SCH (10:11)
[2020-03-10] MEDS: SERTRALINE HCL 50 MG TAB PO SCH (10:11)
[2020-03-10] MEDS: OXYCODONE W/ ACETAMINOPHEN 5/325MG TABLET PO PRN (11:42)
[2020-03-10 14:00] VITALS: BP 126/81
[2020-03-10 16:54] VITALS: BP 140/77
[2020-03-10] MEDS: GABAPENTIN 300 MG CAP PO SCH (21:45)
[2020-03-10] MEDS: TEMAZEPAM 15 MG CAP PO PRN (21:45)
[2020-03-10 22:00] VITALS: BP 136/87
[2020-03-11] MEDS: SODIUM CHLORIDE 0.9% 1,000 ML IV SCH ×3 (00:44→20:55)
[2020-03-11] MEDS: FAMOTIDINE (10MG/ML) 2ML VL IV SCH ×2 (04:32→17:32)
[2020-03-11] MEDS: MORPHINE SULF INJ 2 MG/ML SYRINGE 1ML IV PRN ×5 (04:43→21:35)
[2020-03-11 05:00] VITALS: BP 135/86
[2020-03-11 06:09] LABS: Basophils # (auto) 0.1 10 ^3/uL (0-0.2); Basophils % (auto) 1.3 % (0.0-2.0); Eosinophils # (auto) 0.4 10 ^3/uL (0-0.8); Eosinophils % (auto) 8.6 % (0.0-7.0); Hematocrit 29.8 % (36.0-46.0); Hemoglobin 9.8 g/dL (12.2-16.2); Lymphocytes # (auto) 1.1 10 ^3/uL (0.4-5.4); Lymphocytes % (auto) 27.6 % (10.0-50.0); Mean Corpuscular Hgb Conc. 32.9 g/dL (32.0-36.0); Mean Corpuscular Volume 84.9 fL (80.0-100.0); Monocytes # (auto) 0.1 10 ^3/uL (0-1.3); Monocytes % (auto) 3.3 % (0.0-12.0); Neutrophils # (auto) 2.5 10 ^3/uL (1.6-8.6); Neutrophils % (auto) 59.2 % (37.0-80.0); Nucleated Red Blood Cells % 0.2 %; Platelet Count (auto) 322 10^3/uL (140-450); Red Blood Cells 3.51 10^6/uL (4.0-5.20); White Blood Cell 4.1 10^3/uL (4.4-10.8)
[2020-03-11 06:29] LABS: Calcium 8.3 mg/dL (8.5-10.1); Potassium 3.9 mmol/L (3.5-5.1)
[2020-03-11 06:32] LABS: BUN/Creatinine Ratio 11.6
[2020-03-11] MEDS: OXYCODONE W/ ACETAMINOPHEN 5/325MG TABLET PO PRN ×2 (06:46→18:53)
[2020-03-11] MEDS: Ensure HIGH Protein Chocolate 8oz Bottle PO SCH ×3 (08:00→18:14)
[2020-03-11 09:00] VITALS: BP 132/81
[2020-03-11] MEDS: THIAMINE 100mg/ml INJ (200mg/2ml VIAL) IV SCH (09:17)
[2020-03-11] MEDS: SERTRALINE HCL 50 MG TAB PO SCH (09:18)
[2020-03-11] MEDS: cefTRIAXone 1GM/50ML D5W 50 ML IV SCH (09:18)
[2020-03-11] MEDS: traZODone HCL 50 MG TAB PO SCH (09:19)
[2020-03-11] MEDS: NICOTINE 14 MG/24HR TOPICAL PATCH TD SCH (09:20)
[2020-03-11 09:50] LABS: Urine Bacteria MANY /hpf (None Seen); Urine Blood TRACE /uL (Negative); Urine Mucus FEW (None Seen); Urine Specific Gravity 1.011 (1.001-1.035); Urine WBC 160 /hpf (0 - 5)
[2020-03-11] MEDS: MORPHINE 15 MG PO SCH ×2 (10:57→22:44)
[2020-03-11 13:00] VITALS: BP 121/80
[2020-03-11] MEDS ORDERED: MEROPENEM 1GM IVPB 100 ML IV SCH (14:00)
[2020-03-11 16:54] VITALS: BP 147/78
[2020-03-11] MEDS: MEROPENEM 1GM IVPB 100 ML IV SCH (17:32)
[2020-03-11 22:00] VITALS: BP 133/79
[2020-03-11] MEDS: GABAPENTIN 300 MG CAP PO SCH (22:44)
[2020-03-11] MEDS: TEMAZEPAM 15 MG CAP PO PRN (23:40)
[2020-03-12] MEDS: MEROPENEM 1GM IVPB 100 ML IV SCH ×3 (00:32→17:45)
[2020-03-12] MEDS: FAMOTIDINE (10MG/ML) 2ML VL IV SCH ×2 (04:35→17:44)
[2020-03-12 05:00] VITALS: BP 135/83
[2020-03-12] MEDS: SODIUM CHLORIDE 0.9% 1,000 ML IV SCH ×2 (06:34→17:44)
[2020-03-12 06:52] LABS: Basophils # (auto) 0.1 10 ^3/uL (0-0.2); Eosinophils # (auto) 0.4 10 ^3/uL (0-0.8); Eosinophils % (auto) 7.6 % (0.0-7.0); Hematocrit 31.7 % (36.0-46.0); Hemoglobin 10.4 g/dL (12.2-16.2); Lymphocytes % (auto) 18.8 % (10.0-50.0); Mean Corpuscular Hemoglobin 27.8 pg (28.0-32.0); Mean Corpuscular Hgb Conc. 32.7 g/dL (32.0-36.0); Mean Corpuscular Volume 84.9 fL (80.0-100.0); Monocytes # (auto) 0.2 10 ^3/uL (0-1.3); Monocytes % (auto) 4.4 % (0.0-12.0); Neutrophils # (auto) 3.7 10 ^3/uL (1.6-8.6); Neutrophils % (auto) 68.2 % (37.0-80.0); Platelet Count (auto) 357 10^3/uL (140-450); Red Blood Cells 3.73 10^6/uL (4.0-5.20); Red Cell Distribution Width 17.2 % (11.8-14.3); White Blood Cell 5.5 10^3/uL (4.4-10.8)
[2020-03-12] MEDS: OXYCODONE W/ ACETAMINOPHEN 5/325MG TABLET PO PRN ×2 (06:57→19:56)
[2020-03-12 07:22] LABS: Urine Bacteria FEW /hpf (None Seen); Urine Blood 1+ /uL (Negative); Urine Specific Gravity 1.008 (1.001-1.035); Urine WBC 88 /hpf (0 - 5); Urine WBC Clumps PRESENT /hpf (None Seen)
[2020-03-12 07:27] LABS: Calcium 8.6 mg/dL (8.5-10.1)
[2020-03-12 07:29] LABS: BUN/Creatinine Ratio 10.7
[2020-03-12] MEDS: Ensure HIGH Protein Chocolate 8oz Bottle PO SCH ×3 (08:00→17:45)
[2020-03-12 08:40] VITALS: BP 122/89
[2020-03-12] MEDS: MORPHINE SULF INJ 2 MG/ML SYRINGE 1ML IV PRN ×4 (08:40→21:45)
[2020-03-12] MEDS: THIAMINE 100mg/ml INJ (200mg/2ml VIAL) IV SCH (10:26)
[2020-03-12] MEDS: SERTRALINE HCL 50 MG TAB PO SCH (10:27)
[2020-03-12] MEDS: traZODone HCL 50 MG TAB PO SCH (10:27)
[2020-03-12] MEDS: MORPHINE 15 MG PO SCH ×2 (10:27→22:55)
[2020-03-12] MEDS: NICOTINE 14 MG/24HR TOPICAL PATCH TD SCH (10:28)
[2020-03-12 12:20] VITALS: BP 120/69
[2020-03-12 16:53] VITALS: BP 130/75
[2020-03-12 21:57] VITALS: BP 132/85
[2020-03-12] MEDS: TEMAZEPAM 15 MG CAP PO PRN (22:55)
[2020-03-12] MEDS: GABAPENTIN 300 MG CAP PO SCH (22:55)
[2020-03-13] MEDS: MEROPENEM 1GM IVPB 100 ML IV SCH ×3 (01:00→18:01)
[2020-03-13] MEDS: FAMOTIDINE (10MG/ML) 2ML VL IV SCH ×2 (04:27→18:00)
[2020-03-13] MEDS: MORPHINE SULF INJ 2 MG/ML SYRINGE 1ML IV PRN ×5 (04:27→23:40)
[2020-03-13 05:06] VITALS: BP 102/50
[2020-03-13 06:09] LABS: Basophils # (auto) 0.1 10 ^3/uL (0-0.2); Eosinophils # (auto) 0.4 10 ^3/uL (0-0.8); Eosinophils % (auto) 6.7 % (0.0-7.0); Hematocrit 32.9 % (36.0-46.0); Hemoglobin 10.9 g/dL (12.2-16.2); Lymphocytes % (auto) 19.8 % (10.0-50.0); Mean Corpuscular Hemoglobin 27.9 pg (28.0-32.0); Mean Corpuscular Hgb Conc. 33.1 g/dL (32.0-36.0); Mean Corpuscular Volume 84.3 fL (80.0-100.0); Monocytes # (auto) 0.3 10 ^3/uL (0-1.3); Monocytes % (auto) 6.1 % (0.0-12.0); Neutrophils # (auto) 3.5 10 ^3/uL (1.6-8.6); Neutrophils % (auto) 66.4 % (37.0-80.0); Platelet Count (auto) 390 10^3/uL (140-450); Red Cell Distribution Width 16.9 % (11.8-14.3); White Blood Cell 5.3 10^3/uL (4.4-10.8)
[2020-03-13] MEDS: SODIUM CHLORIDE 0.9% 1,000 ML IV SCH (06:16)
[2020-03-13 06:40] LABS: Calcium 8.6 mg/dL (8.5-10.1); Potassium 4.1 mmol/L (3.5-5.1)
[2020-03-13 06:42] LABS: BUN/Creatinine Ratio 14.3
[2020-03-13 07:36] LABS: Urine Bacteria NONE SEEN /hpf (None Seen); Urine Blood Negative /uL (Negative); Urine Mucus FEW (None Seen); Urine Specific Gravity 1.009 (1.001-1.035); Urine WBC 8 /hpf (0 - 5)
[2020-03-13] MEDS: OXYCODONE W/ ACETAMINOPHEN 5/325MG TABLET PO PRN ×2 (08:03→20:48)
[2020-03-13] MEDS: Ensure HIGH Protein Chocolate 8oz Bottle PO SCH ×3 (08:08→18:01)
[2020-03-13] MEDS: SERTRALINE HCL 50 MG TAB PO SCH (09:33)
[2020-03-13] MEDS: NICOTINE 14 MG/24HR TOPICAL PATCH TD SCH (09:33)
[2020-03-13] MEDS: traZODone HCL 50 MG TAB PO SCH (09:33)
[2020-03-13] MEDS: THIAMINE 100mg/ml INJ (200mg/2ml VIAL) IV SCH (09:33)
[2020-03-13 09:39] VITALS: BP 122/80
[2020-03-13] MEDS ORDERED: DOXYCYCLINE 100 MG TAB/CAP PO ONE (10:15)
[2020-03-13] MEDS: MORPHINE 15 MG PO SCH (12:20)
[2020-03-13 12:59] VITALS: BP 108/82
[2020-03-13] MEDS ORDERED: IOTHALAMATE MEGLUMINE INJ 250ML BOT UR ONE (14:30)
[2020-03-13 17:29] VITALS: BP 132/81
[2020-03-13 22:08] VITALS: BP 116/85
[2020-03-13] MEDS: DOXYCYCLINE 100 MG TAB/CAP PO SCH (23:25)
[2020-03-13] MEDS: GABAPENTIN 300 MG CAP PO SCH (23:26)
[2020-03-14] MEDS: MORPHINE 15 MG PO SCH ×3 (00:12→22:15)
[2020-03-14] MEDS: MEROPENEM 1GM IVPB 100 ML IV SCH ×3 (01:15→17:34)
[2020-03-14 04:44] VITALS: BP 111/80
[2020-03-14] MEDS: FAMOTIDINE (10MG/ML) 2ML VL IV SCH ×2 (06:13→17:34)
[2020-03-14 07:06] LABS: INR 1.04 (0.9-1.15); Partial Thromboplastin Time 32.1 sec (23.64-32.05)
[2020-03-14] MEDS: Ensure HIGH Protein Chocolate 8oz Bottle PO SCH ×3 (08:00→18:54)
[2020-03-14] MEDS: MORPHINE SULF INJ 2 MG/ML SYRINGE 1ML IV PRN (08:32)
[2020-03-14 09:00] VITALS: BP 109/85
[2020-03-14] MEDS: NICOTINE 14 MG/24HR TOPICAL PATCH TD SCH (10:00)
[2020-03-14] MEDS: SERTRALINE HCL 50 MG TAB PO SCH (10:00)
[2020-03-14] MEDS: DOXYCYCLINE 100 MG TAB/CAP PO SCH ×2 (10:00→22:09)
[2020-03-14] MEDS: traZODone HCL 50 MG TAB PO SCH (10:00)
[2020-03-14] MEDS ORDERED: CLINDAMYCIN 600MG IV 50 ML IV ONE (12:48)
[2020-03-14 13:00] VITALS: BP 128/58
[2020-03-14] MEDS ORDERED: CIPROFLOXACIN HCL 500 MG TAB PO ONE (13:30)
[2020-03-14] MEDS ORDERED: MEPERIDINE HCL (25 MG/ML) 1ML VIAL ONE (13:38)
[2020-03-14] MEDS ORDERED: MIDAZOLAM HCL 1MG/1ML-2 ML VIAL ONE (13:38)
[2020-03-14] MEDS ORDERED: fentaNYL CITRATE 100 MCG/2 ML VL ONE (13:38)
[2020-03-14] MEDS ORDERED: SUCCINYLCHOLINE CHLORIDE 20 MG/ML 10ML VIAL IV ONE (13:40)
[2020-03-14] MEDS ORDERED: PROPOFOL 10 MG/ML 20 ML IV ONE (13:51)
[2020-03-14] MEDS ORDERED: DexAMETHasone SOD PHOS 10MG/1ML VIAL INJ ONE (13:51)
[2020-03-14] MEDS ORDERED: ONDANSETRON HCL 4 MG/2 ML VIAL IV PRN (15:30)
[2020-03-14] MEDS ORDERED: HYDROmorphone HCL 2 MG/ML VL ONE (15:31)
[2020-03-14] MEDS: HYDROmorphone HCL 2 MG/ML VL IV PRN ×7 (15:33→23:55)
[2020-03-14 17:00] VITALS: BP 107/77
[2020-03-14 22:00] VITALS: BP 117/57
[2020-03-14] MEDS: GABAPENTIN 300 MG CAP PO SCH (22:08)
[2020-03-14] MEDS: CIPROFLOXACIN HCL 500 MG TAB PO SCH (22:08)
[2020-03-15] MEDS: MEROPENEM 1GM IVPB 100 ML IV SCH ×3 (01:08→17:43)
[2020-03-15] MEDS: HYDROmorphone HCL 2 MG/ML VL IV PRN ×8 (04:19→20:47)
[2020-03-15] MEDS: FAMOTIDINE (10MG/ML) 2ML VL IV SCH ×2 (04:20→17:43)
[2020-03-15 05:00] VITALS: BP 102/65
[2020-03-15 06:33] LABS: Calcium 8.7 mg/dL (8.5-10.1); Potassium 4.3 mmol/L (3.5-5.1)
[2020-03-15 06:35] LABS: BUN/Creatinine Ratio 27.1
[2020-03-15 06:39] LABS: Basophils # (auto) 0 10 ^3/uL (0-0.2); Basophils % (auto) 0.1 % (0.0-2.0); Eosinophils # (auto) 0 10 ^3/uL (0-0.8); Hematocrit 30.2 % (36.0-46.0); Lymphocytes # (auto) 0.9 10 ^3/uL (0.4-5.4); Lymphocytes % (auto) 9.9 % (10.0-50.0); Mean Corpuscular Hemoglobin 27.7 pg (28.0-32.0); Mean Corpuscular Hgb Conc. 33.1 g/dL (32.0-36.0); Mean Corpuscular Volume 83.7 fL (80.0-100.0); Monocytes # (auto) 1.1 10 ^3/uL (0-1.3); Monocytes % (auto) 12.6 % (0.0-12.0); Neutrophils # (auto) 6.8 10 ^3/uL (1.6-8.6); Neutrophils % (auto) 77.4 % (37.0-80.0); Platelet Count (auto) 407 10^3/uL (140-450); Red Blood Cells 3.62 10^6/uL (4.0-5.20); Red Cell Distribution Width 17.3 % (11.8-14.3); White Blood Cell 8.7 10^3/uL (4.4-10.8)
[2020-03-15 08:00] VITALS: BP 120/67
[2020-03-15] MEDS: DOXYCYCLINE 100 MG TAB/CAP PO SCH (09:44)
[2020-03-15] MEDS: ENOXAPARIN SOD 40 MG/0.4 ML SYRINGE SC SCH (09:44)
[2020-03-15] MEDS: CIPROFLOXACIN HCL 500 MG TAB PO SCH ×2 (09:44→22:00)
[2020-03-15] MEDS: NICOTINE 14 MG/24HR TOPICAL PATCH TD SCH (09:45)
[2020-03-15] MEDS: Ensure HIGH Protein Chocolate 8oz Bottle PO SCH ×3 (09:45→17:58)
[2020-03-15] MEDS: traZODone HCL 50 MG TAB PO SCH (09:49)
[2020-03-15] MEDS: SERTRALINE HCL 50 MG TAB PO SCH (09:49)
[2020-03-15] MEDS: MORPHINE 15 MG PO SCH (09:49)
[2020-03-15 10:36] LABS: Urine Bacteria NONE SEEN /hpf (None Seen); Urine Blood Negative /uL (Negative); Urine Mucus FEW (None Seen); Urine Specific Gravity 1.004 (1.001-1.035); Urine WBC 1 /hpf (0 - 5)
[2020-03-15 12:00] VITALS: BP 108/75
[2020-03-15 16:43] VITALS: BP 106/74
[2020-03-15] MEDS: METHOTREXATE 2.5 MG TAB PO SCH (17:48)
[2020-03-15 22:00] VITALS: BP 114/76
[2020-03-15] MEDS: GABAPENTIN 300 MG CAP PO SCH (22:00)
[2020-03-16] MEDS: MEROPENEM 1GM IVPB 100 ML IV SCH ×3 (00:59→17:22)
[2020-03-16] MEDS: HYDROmorphone HCL 2 MG/ML VL IV PRN ×6 (01:00→22:34)
[2020-03-16 05:00] VITALS: BP 112/74
[2020-03-16] MEDS: FAMOTIDINE (10MG/ML) 2ML VL IV SCH ×2 (05:50→17:22)
[2020-03-16 07:00] LABS: Basophils # (auto) 0 10 ^3/uL (0-0.2); Basophils % (auto) 0.4 % (0.0-2.0); Eosinophils # (auto) 0.1 10 ^3/uL (0-0.8); Eosinophils % (auto) 1.4 % (0.0-7.0); Hematocrit 32.5 % (36.0-46.0); Hemoglobin 10.8 g/dL (12.2-16.2); Lymphocytes # (auto) 1.3 10 ^3/uL (0.4-5.4); Lymphocytes % (auto) 13.6 % (10.0-50.0); Mean Corpuscular Hemoglobin 27.9 pg (28.0-32.0); Mean Corpuscular Hgb Conc. 33.2 g/dL (32.0-36.0); Monocytes % (auto) 10.2 % (0.0-12.0); Neutrophils # (auto) 7.2 10 ^3/uL (1.6-8.6); Neutrophils % (auto) 74.4 % (37.0-80.0); Platelet Count (auto) 382 10^3/uL (140-450); Red Blood Cells 3.87 10^6/uL (4.0-5.20); Red Cell Distribution Width 17.7 % (11.8-14.3); White Blood Cell 9.7 10^3/uL (4.4-10.8)
[2020-03-16 07:18] LABS: BUN/Creatinine Ratio 22.5; Calcium 8.9 mg/dL (8.5-10.1); Potassium 3.9 mmol/L (3.5-5.1)
[2020-03-16] MEDS: Ensure HIGH Protein Chocolate 8oz Bottle PO SCH ×3 (08:00→18:12)
[2020-03-16 09:00] VITALS: BP 110/72
[2020-03-16] MEDS: CIPROFLOXACIN HCL 500 MG TAB PO SCH ×2 (09:18→22:19)
[2020-03-16] MEDS: SERTRALINE HCL 50 MG TAB PO SCH (09:18)
[2020-03-16] MEDS: NICOTINE 14 MG/24HR TOPICAL PATCH TD SCH (09:18)
[2020-03-16] MEDS: ENOXAPARIN SOD 40 MG/0.4 ML SYRINGE SC SCH (09:19)
[2020-03-16] MEDS: traZODone HCL 50 MG TAB PO SCH (09:19)
[2020-03-16 13:00] VITALS: BP 110/62
[2020-03-16] MEDS: OXYCODONE W/ ACETAMINOPHEN 5/325MG TABLET PO PRN ×2 (14:49→19:37)
[2020-03-16 17:00] VITALS: BP 103/67
[2020-03-16 22:00] VITALS: BP 107/61
[2020-03-16] MEDS: TEMAZEPAM 15 MG CAP PO PRN (22:18)
[2020-03-16] MEDS: GABAPENTIN 300 MG CAP PO SCH (22:19)
[2020-03-17] MEDS: MEROPENEM 1GM IVPB 100 ML IV SCH ×3 (01:25→17:36)
[2020-03-17] MEDS: OXYCODONE W/ ACETAMINOPHEN 5/325MG TABLET PO PRN ×5 (01:25→21:28)
[2020-03-17 05:00] VITALS: BP 112/77
[2020-03-17] MEDS: FAMOTIDINE (10MG/ML) 2ML VL IV SCH ×2 (05:15→16:21)
[2020-03-17 06:29] LABS: Hematocrit 33.9 % (36.0-46.0)
[2020-03-17] MEDS: Ensure HIGH Protein Chocolate 8oz Bottle PO SCH ×3 (08:00→18:01)
[2020-03-17] MEDS: HYDROmorphone HCL 2 MG/ML VL IV PRN ×3 (08:33→18:08)
[2020-03-17 09:00] VITALS: BP 109/78
[2020-03-17] MEDS: traZODone HCL 50 MG TAB PO SCH (09:54)
[2020-03-17] MEDS: ENOXAPARIN SOD 40 MG/0.4 ML SYRINGE SC SCH (09:54)
[2020-03-17] MEDS: CIPROFLOXACIN HCL 500 MG TAB PO SCH ×2 (09:54→21:28)
[2020-03-17] MEDS: SERTRALINE HCL 50 MG TAB PO SCH (09:54)
[2020-03-17] MEDS: NICOTINE 14 MG/24HR TOPICAL PATCH TD SCH (09:57)
[2020-03-17 13:00] VITALS: BP 117/78
[2020-03-17 17:23] VITALS: BP 93/72
[2020-03-17] MEDS: TEMAZEPAM 15 MG CAP PO PRN (21:27)
[2020-03-17] MEDS: GABAPENTIN 300 MG CAP PO SCH (21:27)
[2020-03-17 22:00] VITALS: BP 112/70
[2020-03-18 00:41] LABS: Urine Amorphous Crystal FEW /hpf (None Seen); Urine Bacteria FEW /hpf (None Seen); Urine Blood Negative /uL (Negative); Urine Mucus FEW (None Seen); Urine Specific Gravity 1.007 (1.001-1.035); Urine WBC 6 /hpf (0 - 5)
[2020-03-18] MEDS: MEROPENEM 1GM IVPB 100 ML IV SCH ×2 (01:00→08:47)
[2020-03-18] MEDS: OXYCODONE W/ ACETAMINOPHEN 5/325MG TABLET PO PRN ×3 (03:59→15:25)
[2020-03-18] MEDS: FAMOTIDINE (10MG/ML) 2ML VL IV SCH (04:01)
[2020-03-18 05:26] VITALS: BP 101/66
[2020-03-18 07:02] LABS: Hematocrit 32.6 % (36.0-46.0); Hemoglobin 10.7 g/dL (12.2-16.2)
[2020-03-18] MEDS: ENOXAPARIN SOD 40 MG/0.4 ML SYRINGE SC SCH (08:47)
[2020-03-18] MEDS: NICOTINE 14 MG/24HR TOPICAL PATCH TD SCH (08:48)
[2020-03-18] MEDS: traZODone HCL 50 MG TAB PO SCH (08:50)
[2020-03-18] MEDS: SERTRALINE HCL 50 MG TAB PO SCH (08:50)
[2020-03-18] MEDS: HYDROmorphone HCL 2 MG/ML VL IV PRN ×2 (08:50→13:22)
[2020-03-18] MEDS: CIPROFLOXACIN HCL 500 MG TAB PO SCH (08:50)
[2020-03-18] MEDS: Ensure HIGH Protein Chocolate 8oz Bottle PO SCH ×2 (08:51→12:00)
[2020-03-18 09:00] VITALS: BP 129/70
[2020-03-18 13:00] VITALS: BP 132/70
== END 2020-03-18 16:20 | DRG 480 ==
LOC: ER 10:19 → TELE 10:20 → EDBD 10:28 → EDUNIT# 10:28 → DOU IN ICU 16:05 → WEST WING 03-08 20:52 → TELE-WESTW 03-08 21:02
PROVIDERS: ADMIT Internal Medicine; ATTEND Internal Medicine
PROC: 0QS736Z Reposition Left Upper Femur with Intramedullary Internal Fixation Device, Percutaneous Approach (ICD-10-PCS; principal; 2020-03-14 13:45)
DX: S72.142A Displaced intertrochanteric fracture of left femur, initial encounter for closed fracture (principal); G92 Toxic encephalopathy; N17.9 Acute kidney failure, unspecified; E44.0 Moderate protein-calorie malnutrition; Z68.1 Body mass index [BMI] 19.9 or less, adult; I95.0 Idiopathic hypotension; M06.041 Rheumatoid arthritis without rheumatoid factor, right hand; M06.042 Rheumatoid arthritis without rheumatoid factor, left hand; R00.1 Bradycardia, unspecified; T40.4X1A Poisoning by other synthetic narcotics, accidental (unintentional), initial encounter; F32.9 Major depressive disorder, single episode, unspecified; M19.90 Unspecified osteoarthritis, unspecified site; G62.9 Polyneuropathy, unspecified; G89.29 Other chronic pain; D63.8 Anemia in other chronic diseases classified elsewhere; K57.90 Diverticulosis of intestine, part unspecified, without perforation or abscess without bleeding; D25.9 Leiomyoma of uterus, unspecified; N18.3 Chronic kidney disease, stage 3 (moderate); B96.20 Unspecified Escherichia coli [E. coli] as the cause of diseases classified elsewhere; R61 Generalized hyperhidrosis; E88.09 Other disorders of plasma-protein metabolism, not elsewhere classified; W01.0XXA Fall on same level from slipping, tripping and stumbling without subsequent striking against object, initial encounter; F17.210 Nicotine dependence, cigarettes, uncomplicated; Z79.891 Long term (current) use of opiate analgesic; Z88.0 Allergy status to penicillin; Z79.899 Other long term (current) drug therapy; Z80.9 Family history of malignant neoplasm, unspecified; Z83.3 Family history of diabetes mellitus; Z82.61 Family history of arthritis; Z84.89 Family history of other specified conditions; Z85.41 Personal history of malignant neoplasm of cervix uteri; Y93.89 Activity, other specified; Y92.89 Other specified places as the place of occurrence of the external cause; Y99.8 Other external cause status; Z11.59 Encounter for screening for other viral diseases; N30.80 Other cystitis without hematuria
CPT/HCPCS: 36415; 51702; 70450; 71045; 72192; 73502; 74430; 76001; 76856; 80048; 80053; 81001; 82378; 83880; 84443; 84484; 85014; 85018; 85025; 85610; 85652; 85730; 86141; 86301; 86304; 86850; 86900; 86901; 87081; 87086; 87088; 87186; 93005; 93306; 93970; 96360; 97110; 97116; 97163; 97530; 99291; A4565; G0378; J0330; J0696; J1100; J2185; J2250; J2704; J3490